=== PATIENT | female | born 1995 | race African-American/Black ===

== ENCOUNTER 2021-03-22 17:11 | Emergency (ER) | payer SELFPAY ==
[~2021-03-22] VITALS: Ht 167.6 cm; Wt 88.0 kg
[2021-03-22] MEDS ORDERED: MORPHINE SULFATE 4 MG/ML CPJ (NOT FOR IM USE) IV STA (17:34)
[2021-03-22] MEDS ORDERED: FENTANYL CITRATE/PF 50MCG/ML 2ML VIAL IV ONE ×2 (18:00→21:00)
[2021-03-22] MEDS ORDERED: ONDANSETRON HCL 4MG/2ML INJ IV ONE (18:00)
[2021-03-22 18:35] LABS: BASOPHILS % 0.4 % (0.0-2.0); EOSINOPHILS % 0.2 % (0.0-5.0); HEMATOCRIT. 33.5 % (36.0-48.0); LYMPHOCYTES % 16.6 % (20.0-50.0); MEAN CORPUSCULAR HEMOGLOBIN 22.7 pg (28.0-32.0); MEAN CORPUSCULAR VOLUME 69.2 fL (81.0-99.0); MEAN PLATELET VOLUME 9.4 fl (7.4-10.4); MONOCYTES % 8.5 % (2.0-8.0); NEUTROPHILS % 74.3 % (40.0-76.0); PLATELET 254 x1000/uL (130-400); RED BLOOD CELL COUNT 4.84 mill/uL (4.2-5.4); RED CELL DISTRIBUTION WIDTH 18.1 % (11.6-14.6)
[2021-03-22 18:41] LABS: CHLORIDE 109 mEq/L (98-107)
[2021-03-22 18:42] LABS: PROTHROMBIN TIME 11.1 sec (9.6-11.0)
[2021-03-22 18:45] LABS: ETHANOL BLOOD < 10 mg/dL
[2021-03-22 19:01] LABS: HCG SCREEN NEGATIVE
[2021-03-22] MEDS ORDERED: IOHEXOL-300 100 ML BOTTLE ONE (19:51)
[2021-03-22 19:53] LABS: PLATELET ESTIMATE NORMAL
[2021-03-22 21:00] VITALS: BP 151/62
== END 2021-03-22 22:09 | disposition left against medical advice (07) ==
LOC: ER 17:11
DX: S82.492A Other fracture of shaft of left fibula, initial encounter for closed fracture (principal); S01.01XA Laceration without foreign body of scalp, initial encounter; W22.8XXA Striking against or struck by other objects, initial encounter; Y93.89 Activity, other specified; Y92.89 Other specified places as the place of occurrence of the external cause; Y99.8 Other external cause status
CPT/HCPCS: 36415; 70450; 71045; 71260; 72125; 73560; 73590; 73610; 73620; 74177; 80053; 80320; 83605; 83690; 83880; 84484; 84703; 85025; 85610; 86850; 86870; 86900; 86901; 93005; 96374; 96375; 96376; 99285; A4217; J2270; J2405; J3010; Q9967; Z7610; G0480